=== PATIENT | female | born 1970 | race Caucasian/White ===

== ENCOUNTER → 2020-09-06 | Outpatient (CLI) | payer BC ==
[~2020-09-06] MED LIST: AMBIEN5 MG PO; OMNICEF 300 MG300 MG PO; PERCOCET 5/325 T1 EA PO; PLAQUENIL 200200 MG PO; PRASTERONE; SALAGEN5 MG PO; VITAMIN D10000 UNIT PO; ZOFRAN ODT 4 MG4 MG PO
== END ==
LOC: KOH-I 08:42
DX: R06.00 Dyspnea, unspecified (principal); Z86.16 Personal history of COVID-19
CPT/HCPCS: 71046

== ENCOUNTER 2021-04-15 12:21 | Emergency (ER) | payer BC ==
[2021-04-15] MEDS ORDERED: IBUPROFEN600 MG PO (13:28)
== END 2021-04-15 13:40 | disposition home or self-care (01) ==
LOC: ER1 12:21
DX: M79.671 Pain in right foot (principal); Z90.49 Acquired absence of other specified parts of digestive tract
CPT/HCPCS: 73630; 99283

== ENCOUNTER → 2021-06-11 | Outpatient (CLI) | payer BC ==
[~2021-06-11] MED LIST changes: +IBUPROFEN600 MG PO
[2021-06-11 13:05] LABS: HEMOGLOBIN 12.6 gm/dl (12.3-15.3); RED BLOOD COUNT 4.13 M/UL (4.00-5.10); WHITE BLOOD COUNT 3.7 K/UL (4.5-11.0)
[2021-06-11 13:22] LABS: BUN/CREATININE RATIO 23 (0-10)
== END ==
LOC: LAB 12:07
PROVIDERS: Nurse Practitioner Family
DX: Z00.00 Encounter for general adult medical examination without abnormal findings (principal); G47.00 Insomnia, unspecified; M35.00 Sjogren syndrome, unspecified; I10 Essential (primary) hypertension; I34.0 Nonrheumatic mitral (valve) insufficiency; R53.82 Chronic fatigue, unspecified
CPT/HCPCS: 36415; 80053; 80061; 82607; 82728; 83036; 83540; 85027

== ENCOUNTER → 2021-07-12 | Outpatient (CLI) | payer BC | LOC: RAD 12:27 | DX: M70.62 Trochanteric bursitis, left hip (principal); M54.9 Dorsalgia, unspecified; M47.816 Spondylosis without myelopathy or radiculopathy, lumbar region | CPT/HCPCS: 73502 ==